=== PATIENT | female | born 1970 | race African-American/Black ===

== ENCOUNTER 2022-10-28 11:32 | Emergency (ER) | payer MEDICAID, OTHER ==
[~2022-10-28] VITALS: Ht 152.4 cm; Wt 86.0 kg
[~2022-10-28 11:32] MED LIST: AMOX1TAB16 MT; FLUO20CA39 PO; GABA-532 PO; LANTUSUD SUBCUT; MIDO5TAB4 PO
[2022-10-28 13:13] LABS: EOSINOPHILS % 3.9 % (0.0-5.0); HEMATOCRIT. 32.8 % (36.0-48.0); HEMOGLOBIN. 10.7 g/dL (12.0-16.0); MEAN CORPUSCULAR HEMOGLOBIN 26.9 pg (28.0-32.0); MEAN CORPUSCULAR VOLUME 82.3 fL (81.0-99.0); MEAN PLATELET VOLUME 9.5 fl (7.4-10.4); MONOCYTES % 7.5 % (2.0-8.0); NEUTROPHILS % 52.6 % (40.0-76.0); PLATELET 329 x1000/uL (130-400); RED BLOOD CELL COUNT 3.99 mill/uL (4.2-5.4); RED CELL DISTRIBUTION WIDTH 15.2 % (11.6-14.6)
[2022-10-28 13:21] LABS: CHLORIDE 101 mEq/L (98-107)
[2022-10-28 14:30] VITALS: BP 127/82
[2022-10-28] MEDS ORDERED: BLOOD SUGAR DIAGNOSTIC STRIP TEST SCH (17:00)
[2022-10-28] MEDS ORDERED: INSULIN LISPRO 100 UNITS/ML SUBCUT SCH (18:20)
== END 2022-10-28 14:32 | disposition home or self-care (01) ==
LOC: ER 11:32
DX: E11.621 Type 2 diabetes mellitus with foot ulcer (principal); L97.529 Non-pressure chronic ulcer of other part of left foot with unspecified severity; I10 Essential (primary) hypertension; Z79.4 Long term (current) use of insulin
CPT/HCPCS: 36415; 73630; 80053; 82962; 85025; 99284; Z7610

== ENCOUNTER 2024-06-05 15:00 | Inpatient (IN) | payer MEDICAID, OTHER ==
[~2024-06-05] VITALS: Ht 160 cm; Wt 74.8 kg
[~2024-06-05 15:00] MED LIST changes: +FLUO-413 PO; -FLUO20CA39 PO; +GABA-1180 PO; -GABA-532 PO
[2024-06-05] MEDS: SODIUM CHLORIDE 0.9% 1,000 ML IV ONE ×2 (15:20→17:28)
[2024-06-05 15:24] LABS: BASOPHILS % 0.8 % (0.0-2.0); EOSINOPHILS % 0.6 % (0.0-5.0); HEMATOCRIT. 33.2 % (36.0-48.0); HEMOGLOBIN. 10.4 g/dL (12.0-16.0); LYMPHOCYTES % 21.4 % (20.0-50.0); MEAN CORPUSCULAR HEMOGLOBIN 25.6 pg (28.0-32.0); MEAN CORPUSCULAR HGB CONC 31.4 g/dL (31.0-37.0); MEAN CORPUSCULAR VOLUME 81.5 fL (81.0-99.0); MEAN PLATELET VOLUME 11.3 fl (7.4-10.4); MONOCYTES % 7.4 % (2.0-8.0); NEUTROPHILS % 69.8 % (40.0-76.0); PLATELET 314 x1000/uL (130-400); RED BLOOD CELL COUNT 4.07 mill/uL (4.2-5.4); RED CELL DISTRIBUTION WIDTH 17.2 % (11.6-14.6); WHITE BLOOD COUNT 10.4 x1000/uL (4.5-11.0)
[2024-06-05] MEDS: ONDANSETRON HCL 4MG/2ML INJ IV STA (15:26)
[2024-06-05 15:30] LABS: CARBON DIOXIDE 15 mEq/L (21-32); CHLORIDE 101 mEq/L (98-107); SODIUM 134 mEq/L (136-145)
[2024-06-05 15:31] LABS: CALCIUM 10.4 mg/dL (8.7-10.4)
[2024-06-05 15:36] LABS: CREATININE 4.3 mg/dL (0.6-1.0)
[2024-06-05 15:37] LABS: TROPONIN I HIGH SENSITIVITY 5 ng/L (3.0-34)
[2024-06-05 15:53] LABS: POTASSIUM 6.2 mEq/L (3.5-5.1)
[2024-06-05 15:54] LABS: ETHANOL BLOOD < 10 mg/dL (<10); GLUCOSE 635 mg/dL (70-105); UREA NITROGEN BLOOD 151 mg/dL (9-23)
[2024-06-05 16:06] LABS: BETA HYDROXYBUTYRATE 1.8 mMol/L (0.0-0.3)
[2024-06-05] MEDS: CALCIUM CHLORIDE 1GM/10ML SYR IV ONE (16:27)
[2024-06-05] MEDS: DEXTROSE 50% WATER 50ML SYRINGE IV ONE (16:27)
[2024-06-05] MEDS: INSULIN REGULAR (HUMULIN R) 1000UNITS/10ML VIAL IV ONE (16:30)
[2024-06-05] MEDS ORDERED: SODIUM PHOSPHATE 15 MMOL in SODIUM CHLORIDE 0.9% 245 ML IV PRN (16:45)
[2024-06-05] MEDS ORDERED: DEXTROSE 50% WATER 50ML SYRINGE IV PRN ×3 (16:45→20:30)
[2024-06-05] MEDS ORDERED: KCL 20MEQ/100ML PREMIX 100 ML IV PRN (16:45)
[2024-06-05] MEDS ORDERED: MAGNESIUM 2 G PREMIX 50 ML IV PRN (16:45)
[2024-06-05] MEDS ORDERED: POTASSIUM CHLORIDE 40 MEQ in SODIUM CHLORIDE 0.9% 230 ML IV PRN (16:45)
[2024-06-05] MEDS ORDERED: BLOOD SUGAR DIAGNOSTIC STRIP TEST PRN (16:45)
[2024-06-05] MEDS: BLOOD SUGAR DIAGNOSTIC STRIP TEST SCH ×2 (16:52→21:00)
[2024-06-05] MEDS: INSULIN REGULAR (DRIP) 100 UNITS in SODIUM CHLORIDE 0.9% 99 ML IV SCH (17:04)
[2024-06-05] MEDS: SODIUM CHLORIDE 0.9% 1,000 ML IV SCH (17:05)
[2024-06-05 17:32] LABS: CHLORIDE 106 mEq/L (98-107); POTASSIUM 5.3 mEq/L (3.5-5.1)
[2024-06-05 17:33] LABS: CARBON DIOXIDE 12 mEq/L (21-32); SODIUM 135 mEq/L (136-145)
[2024-06-05 17:34] LABS: CALCIUM 10.9 mg/dL (8.7-10.4)
[2024-06-05 17:39] LABS: TROPONIN I HIGH SENSITIVITY 4 ng/L (3.0-34)
[2024-06-05 17:41] LABS: PHOSPHORUS 6.5 mg/dL (2.5-4.9)
[2024-06-05 17:52] LABS: GLUCOSE 689 mg/dL (70-105); UREA NITROGEN BLOOD 138 mg/dL (9-23)
[2024-06-05 18:26] VITALS: PULSE 108; RESP 14; O2SAT 100
[2024-06-05] MEDS: ALBUTEROL (0.083%) 2.5MG/3ML NEB HHN ONE (18:26)
[2024-06-05] MEDS: ALBUTEROL (0.083%) 2.5MG/3ML NEB ONE (19:10)
[2024-06-05] MEDS: ALBUTEROL (0.5%) 2.5MG/0.5ML NEB HHN ONE (19:10)
[2024-06-05] MEDS: NOREPINEPHRINE 8MG/250ML PMX 250 ML IV ONE (19:34)
[2024-06-05] MEDS ORDERED: SODIUM CHLORIDE 0.9% (SEPSIS BOLUS) IV ONE (19:45)
[2024-06-05] MEDS ORDERED: SODIUM CHLORIDE 0.9% 3,000 ML IV SCH (20:00)
[2024-06-05] MEDS ORDERED: ACETAMINOPHEN 325MG TABLET PO PRN ×2 (20:30)
[2024-06-05] MEDS ORDERED: KETOROLAC 15MG/ML VIAL IV PRN (20:30)
[2024-06-05] MEDS ORDERED: GUAIFENESIN 200MG/10ML SUGAR FREE UDC PO PRN (20:30)
[2024-06-05] MEDS ORDERED: DOCUSATE SODIUM 100MG CAPSULE PO PRN (20:30)
[2024-06-05] MEDS ORDERED: CLONIDINE 0.1MG TABLET PO PRN (20:30)
[2024-06-05] MEDS ORDERED: IPRATROPIUM/ALBUTEROL 0.5-3(2.5)MG/3ML NEB NEB PRN (20:30)
[2024-06-05] MEDS ORDERED: SODIUM CHLORIDE 0.45% 1,000 ML IV NR (20:30)
[2024-06-05] MEDS ORDERED: MAGNESIUM/ALUMINUM HYDROXIDE/SIMETHICONE 30ML UDC PO PRN (20:30)
[2024-06-05] MEDS ORDERED: ENOXAPARIN 40MG/0.4ML SYR SUBCUT SCH (20:30)
[2024-06-05] MEDS ORDERED: NITROGLYCERIN 0.4MG TABLET SL SL PRN (20:30)
[2024-06-05] MEDS ORDERED: ZOLPIDEM TARTRATE 5MG TABLET PO PRN (21:00)
[2024-06-05 21:45] LABS: CHLORIDE 111 mEq/L (98-107); SODIUM 139 mEq/L (136-145)
[2024-06-05 21:46] LABS: CALCIUM 10.2 mg/dL (8.7-10.4); CARBON DIOXIDE 11 mEq/L (21-32)
[2024-06-05 21:51] LABS: CREATININE 3.6 mg/dL (0.6-1.0); GLUCOSE 391 mg/dL (70-105); IRON 67 ug/dL (50-170)
[2024-06-05 21:52] LABS: TRIGLYCERIDE 239 mg/dL (0-150)
[2024-06-05 21:53] LABS: ALANINE AMINOTRANSFERASE < 7 IU/L (10-49); ALBUMIN 3.9 g/dL (3.2-4.8); ASPARTATE AMINOTRANSFERASE 24 IU/L (<34); BILIRUBIN TOTAL 0.4 mg/dL (0.1-1.0); LACTIC ACID 3.3 mmol/L (0.4-2.0); LDL CHOLESTEROL 79 mg/dL (5-100); PHOSPHORUS 5.8 mg/dL (2.5-4.9)
[2024-06-05 21:54] LABS: CHOLESTEROL 154 mg/dL (<200); HDL CHOLESTEROL 28 mg/dL (>65); PROTEIN TOTAL 8.2 g/dL (6.0-8.3); TOTAL IRON BINDING CAPACITY 420 ug/dl (250-425)
[2024-06-05 21:56] LABS: T4 FREE 1.25 ng/dL (0.89-1.76); THYROID STIMULATING HORMONE 0.73 uIU/mL (0.55-4.78)
[2024-06-05 21:58] LABS: VITAMIN B12 SERUM 694 pg/mL (211-911)
[2024-06-05 21:59] LABS: FOLIC ACID (FOLATE) SERUM > 20.00 ng/mL (>5.38)
[2024-06-05 22:00] LABS: POTASSIUM 4.6 mEq/L (3.5-5.1)
[2024-06-05 22:19] LABS: UREA NITROGEN BLOOD 126 mg/dL (9-23)
[2024-06-05] MEDS: PIPERACILLIN/TAZO 3.375G/50ML 50 ML IV NR (23:44)
[2024-06-05] MEDS: PANTOPRAZOLE SODIUM 40 MG/VIAL IV SCH (23:45)
[2024-06-05] MEDS: ENOXAPARIN 30MG/0.3ML SYR SUBCUT SCH (23:45)
[2024-06-06] VITALS (23 sets, daily range): BP systolic 59–171; BP diastolic 35–102; PULSE 94–128; RESP 13–29; TEMP 36.3624–37.11408; O2SAT 97–100
[2024-06-06 00:10] LABS: CREATINE KINASE MB FRACTION 1.8 ng/mL (0.5-3.6)
[2024-06-06] MEDS: SODIUM CHLORIDE 0.9% 1,000 ML IV SCH (00:19)
[2024-06-06 00:31] LABS: CHLORIDE 112 mEq/L (98-107); POTASSIUM 4.6 mEq/L (3.5-5.1); SODIUM 142 mEq/L (136-145)
[2024-06-06 00:32] LABS: CALCIUM 10.6 mg/dL (8.7-10.4)
[2024-06-06 00:37] LABS: CREATININE 3.5 mg/dL (0.6-1.0); GLUCOSE 354 mg/dL (70-105)
[2024-06-06 00:39] LABS: ALANINE AMINOTRANSFERASE < 7 IU/L (10-49); ALBUMIN 3.9 g/dL (3.2-4.8); ASPARTATE AMINOTRANSFERASE 9 IU/L (<34); BILIRUBIN TOTAL 0.4 mg/dL (0.1-1.0); PROTEIN TOTAL 8.2 g/dL (6.0-8.3)
[2024-06-06] MEDS: DEXT 5%/0.9% NACL 1,000 ML IV SCH (00:45)
[2024-06-06 01:19] LABS: CARBON DIOXIDE < 10 mEq/L (21-32)
[2024-06-06 01:22] LABS: UREA NITROGEN BLOOD 112 mg/dL (9-23)
[2024-06-06 04:14] LABS: BASOPHILS % 0.4 % (0.0-2.0); EOSINOPHILS % 0.7 % (0.0-5.0); HEMOGLOBIN. 10.4 g/dL (12.0-16.0); LYMPHOCYTES % 24.3 % (20.0-50.0); MEAN CORPUSCULAR HEMOGLOBIN 25.6 pg (28.0-32.0); MEAN CORPUSCULAR HGB CONC 30.7 g/dL (31.0-37.0); MEAN CORPUSCULAR VOLUME 83.3 fL (81.0-99.0); NEUTROPHILS % 61.6 % (40.0-76.0); PLATELET 271 x1000/uL (130-400); RED BLOOD CELL COUNT 4.08 mill/uL (4.2-5.4); RED CELL DISTRIBUTION WIDTH 17.1 % (11.6-14.6); WHITE BLOOD COUNT 12.8 x1000/uL (4.5-11.0)
[2024-06-06 04:28] LABS: CHLORIDE 114 mEq/L (98-107); POTASSIUM 4.5 mEq/L (3.5-5.1); SODIUM 145 mEq/L (136-145)
[2024-06-06 04:29] LABS: CALCIUM 10.5 mg/dL (8.7-10.4); CARBON DIOXIDE 14 mEq/L (21-32)
[2024-06-06 04:34] LABS: CREATININE 3.5 mg/dL (0.6-1.0); GLUCOSE 245 mg/dL (70-105)
[2024-06-06 04:36] LABS: ALANINE AMINOTRANSFERASE < 7 IU/L (10-49); ALBUMIN 4.1 g/dL (3.2-4.8); ASPARTATE AMINOTRANSFERASE 9 IU/L (<34); BILIRUBIN TOTAL 0.4 mg/dL (0.1-1.0); CREATINE KINASE MB FRACTION 1.6 ng/mL (0.5-3.6)
[2024-06-06 04:37] LABS: PROTEIN TOTAL 8.5 g/dL (6.0-8.3)
[2024-06-06 05:08] LABS: UREA NITROGEN BLOOD 122 mg/dL (9-23)
[2024-06-06] MEDS: PIPERACILLIN/TAZO 3.375G/50ML 50 ML IV SCH (09:00)
[2024-06-06] MEDS: ASPIRIN 81MG EC TABLET PO SCH (09:00)
[2024-06-06 10:58] LABS: CHLORIDE 118 mEq/L (98-107); POTASSIUM 4.2 mEq/L (3.5-5.1); SODIUM 147 mEq/L (136-145)
[2024-06-06 10:59] LABS: CALCIUM 10.1 mg/dL (8.7-10.4); CARBON DIOXIDE 15 mEq/L (21-32)
[2024-06-06 11:03] LABS: CREATININE 2.8 mg/dL (0.6-1.0)
[2024-06-06 11:04] LABS: GLUCOSE 160 mg/dL (70-105); UREA NITROGEN BLOOD 100 mg/dL (9-23)
[2024-06-06 11:05] LABS: ALANINE AMINOTRANSFERASE < 7 IU/L (10-49); ASPARTATE AMINOTRANSFERASE 10 IU/L (<34)
[2024-06-06 11:06] LABS: BETA HYDROXYBUTYRATE 0.1 mMol/L (0.0-0.3); BILIRUBIN TOTAL 0.3 mg/dL (0.1-1.0); PROTEIN TOTAL 8.4 g/dL (6.0-8.3)
[2024-06-06 13:41] LABS: CLARITY URINE CLEAR (CLEAR); COLOR URINE YELLOW (YELLOW); GLUCOSE URINE 2+ (NEGATIVE); KETONES URINE NEGATIVE (NEGATIVE); LEUKOCYTE ESTERASE URINE 2+ (NEGATIVE); NITRITE URINE NEGATIVE (NEGATIVE); OCCULT BLOOD URINE TRACE (NEGATIVE); PROTEIN URINE 1+ (NEGATIVE); SPECIFIC GRAVITY URINE 1.012 (1.005-1.030); UROBILINOGEN URINE 0.2 E.U./dL (0.2-1.0)
[2024-06-06 13:57] LABS: *AMPHETAMINES SCREEN URINE NEGATIVE (NEGATIVE); *BARBITURATES SCREEN URINE NEGATIVE (NEGATIVE); *BENZODIAZEPINES SCREEN URINE NEGATIVE (NEGATIVE); *COCAINE SCREEN URINE NEGATIVE (NEGATIVE); CANNABINOID URINE SCREEN NEGATIVE (NEGATIVE); ECSTASY MDMA SCREEN URINE NEGATIVE (NEGATIVE); METHADONE URINE SCREEN NEGATIVE (NEGATIVE); OPIATES URINE SCREEN NEGATIVE (NEGATIVE); PHENCYCLIDINE URINE SCREEN NEGATIVE (NEGATIVE)
[2024-06-06 13:58] LABS: CREATININE URINE RANDOM 21.3 mg/dL
[2024-06-06 14:09] LABS: BACTERIA URINE 1+; RBC URINE 0-2 /hpf (0-2); SQUAMOUS EPITHELIAL CELL URINE RARE /lpf (RARE/1+); WBC URINE 50-100 /hpf (0-2); YEAST URINE NONE SEEN
[2024-06-06 14:48] LABS: CHLORIDE 117 mEq/L (98-107); POTASSIUM 4.8 mEq/L (3.5-5.1); SODIUM 146 mEq/L (136-145)
[2024-06-06 14:49] LABS: CALCIUM 9.7 mg/dL (8.7-10.4); CARBON DIOXIDE 14 mEq/L (21-32)
[2024-06-06 14:54] LABS: CREATININE 2.8 mg/dL (0.6-1.0); GLUCOSE 338 mg/dL (70-105)
[2024-06-06 14:56] LABS: ALANINE AMINOTRANSFERASE < 7 IU/L (10-49); ASPARTATE AMINOTRANSFERASE 14 IU/L (<34); BILIRUBIN TOTAL 0.3 mg/dL (0.1-1.0); PROTEIN TOTAL 8.3 g/dL (6.0-8.3)
[2024-06-06 15:01] LABS: UREA NITROGEN BLOOD 105 mg/dL (9-23)
[2024-06-06] MEDS ORDERED: DEXTROSE 50% WATER 50ML SYRINGE IV PRN ×2 (18:45)
[2024-06-06] MEDS: BLOOD SUGAR DIAGNOSTIC STRIP TEST SCH (18:45)
[2024-06-06] MEDS: ONDANSETRON HCL 4MG/2ML INJ IV PRN (18:53)
[2024-06-06] MEDS: SODIUM CHL 0.45% + KCL 20MEQ/L 1,000 ML IV SCH (19:09)
[2024-06-06] MEDS: MAGNESIUM 1 G PREMIX 100 ML IV NR (19:09)
[2024-06-06] MEDS ORDERED: INSULIN REGULAR 100U/100ML PMX 100 ML IV SCH ×2 (19:30)
[2024-06-06] MEDS ORDERED: PHENYLEPHRINE 100 MG in DEXT 5% WATER 240 ML IV PRN (19:30)
[2024-06-06] MEDS: SODIUM CHLORIDE 0.45% 1,000 ML IV NR (19:55)
[2024-06-06 22:24] LABS: CARBON DIOXIDE 14 mEq/L (21-32); CHLORIDE 120 mEq/L (98-107); POTASSIUM 4.2 mEq/L (3.5-5.1); SODIUM 149 mEq/L (136-145)
[2024-06-06 22:26] LABS: CALCIUM 9.8 mg/dL (8.7-10.4)
[2024-06-06 22:30] LABS: CREATININE 2.6 mg/dL (0.6-1.0); GLUCOSE 270 mg/dL (70-105)
[2024-06-06 22:31] LABS: ALANINE AMINOTRANSFERASE < 7 IU/L (10-49); ASPARTATE AMINOTRANSFERASE 8 IU/L (<34); UREA NITROGEN BLOOD 89 mg/dL (9-23)
[2024-06-06 22:33] LABS: BILIRUBIN TOTAL 0.3 mg/dL (0.1-1.0); PROTEIN TOTAL 8.6 g/dL (6.0-8.3)
[2024-06-07] VITALS (98 sets, daily range): BP systolic 66–155; BP diastolic 32–115; PULSE 89–118; RESP 11–26; TEMP 36.72516–37.28076; O2SAT 80–100
[2024-06-07] MEDS: DEXT 5%/0.45% NACL KCL 20MEQ/L 1,000 ML IV SCH (00:10)
[2024-06-07] MEDS: INSULIN REGULAR 100U/100ML PMX 100 ML IV SCH (00:15)
[2024-06-07] MEDS: PHENYLEPHRINE 100 MG in DEXT 5% WATER 250 ML IV PRN (00:59)
[2024-06-07 06:36] LABS: CHLORIDE 118 mEq/L (98-107); POTASSIUM 4.5 mEq/L (3.5-5.1); SODIUM 147 mEq/L (136-145)
[2024-06-07 06:38] LABS: CARBON DIOXIDE 17 mEq/L (21-32)
[2024-06-07 06:43] LABS: GLUCOSE 173 mg/dL (70-105)
[2024-06-07 06:44] LABS: UREA NITROGEN BLOOD 75 mg/dL (9-23)
[2024-06-07 06:45] LABS: ALANINE AMINOTRANSFERASE < 7 IU/L (10-49); ALBUMIN 3.7 g/dL (3.2-4.8)
[2024-06-07 06:46] LABS: BILIRUBIN TOTAL 0.4 mg/dL (0.1-1.0); PHOSPHORUS 1.9 mg/dL (2.5-4.9); PROTEIN TOTAL 7.9 g/dL (6.0-8.3)
[2024-06-07 06:50] LABS: BASOPHILS % 0.4 % (0.0-2.0); EOSINOPHILS % 0.9 % (0.0-5.0); HEMATOCRIT. 30.4 % (36.0-48.0); HEMOGLOBIN. 9.3 g/dL (12.0-16.0); LYMPHOCYTES % 18.8 % (20.0-50.0); MEAN CORPUSCULAR HEMOGLOBIN 25.1 pg (28.0-32.0); MEAN CORPUSCULAR HGB CONC 30.7 g/dL (31.0-37.0); MEAN CORPUSCULAR VOLUME 81.9 fL (81.0-99.0); MEAN PLATELET VOLUME 10.9 fl (7.4-10.4); NEUTROPHILS % 65.9 % (40.0-76.0); PLATELET 257 x1000/uL (130-400); RED BLOOD CELL COUNT 3.71 mill/uL (4.2-5.4); RED CELL DISTRIBUTION WIDTH 17.7 % (11.6-14.6); WHITE BLOOD COUNT 15.7 x1000/uL (4.5-11.0)
[2024-06-07 06:56] LABS: ASPARTATE AMINOTRANSFERASE < 8 IU/L (<34)
[2024-06-07] MEDS: PIPERACILLIN/TAZO 3.375G/100ML 100 ML IV SCH (09:37)
[2024-06-07] MEDS ORDERED: DEXTROSE 50% WATER 50ML SYRINGE IV PRN ×2 (11:15)
[2024-06-07 12:11] LABS: POTASSIUM 4.5 mEq/L (3.5-5.1)
[2024-06-07 12:12] LABS: CALCIUM 8.6 mg/dL (8.7-10.4)
[2024-06-07] MEDS ORDERED: BLOOD SUGAR DIAGNOSTIC STRIP TEST SCH (12:50)
[2024-06-07] MEDS: BLOOD SUGAR DIAGNOSTIC STRIP TEST SCH (12:50)
[2024-06-07] MEDS: INSULIN GLARGINE 100 UNITS/ML SUBCUT SCH (13:03)
[2024-06-07] MEDS: INSULIN LISPRO 100 UNITS/ML SUBCUT SCH ×2 (13:03→14:36)
[2024-06-08] VITALS (91 sets, daily range): BP systolic 72–173; BP diastolic 40–105; PULSE 81–120; RESP 9–25; TEMP 36.55848–37.16964; O2SAT 96–100
[2024-06-08 06:00] LABS: BASOPHILS % 0.9 % (0.0-2.0); EOSINOPHILS % 2.6 % (0.0-5.0); HEMATOCRIT. 29.6 % (36.0-48.0); HEMOGLOBIN. 9.2 g/dL (12.0-16.0); LYMPHOCYTES % 26.5 % (20.0-50.0); MEAN CORPUSCULAR HEMOGLOBIN 25.6 pg (28.0-32.0); MEAN CORPUSCULAR HGB CONC 31.1 g/dL (31.0-37.0); MEAN CORPUSCULAR VOLUME 82.3 fL (81.0-99.0); MEAN PLATELET VOLUME 10.8 fl (7.4-10.4); MONOCYTES % 11.4 % (2.0-8.0); NEUTROPHILS % 58.6 % (40.0-76.0); PLATELET 225 x1000/uL (130-400); RED CELL DISTRIBUTION WIDTH 17.3 % (11.6-14.6); WHITE BLOOD COUNT 14.2 x1000/uL (4.5-11.0)
[2024-06-08 06:19] LABS: POTASSIUM 4.8 mEq/L (3.5-5.1)
[2024-06-08 06:25] LABS: CREATININE 1.8 mg/dL (0.6-1.0)
[2024-06-08] MEDS ORDERED: INSULIN GLARGINE 100 UNITS/ML SUBCUT SCH (10:00)
[2024-06-08] MEDS: MIDODRINE HCL 5MG TABLET PO SCH (11:57)
[2024-06-09] VITALS (43 sets, daily range): BP systolic 84–172; BP diastolic 44–141; PULSE 85–114; RESP 12–27; TEMP 36.6696–36.9474; O2SAT 96–100
[2024-06-09 06:16] LABS: CALCIUM 8.7 mg/dL (8.7-10.4); POTASSIUM 4.6 mEq/L (3.5-5.1)
[2024-06-09 06:18] LABS: BASOPHILS % 0.7 % (0.0-2.0); EOSINOPHILS % 2.3 % (0.0-5.0); HEMATOCRIT. 28.8 % (36.0-48.0); LYMPHOCYTES % 27.4 % (20.0-50.0); MEAN CORPUSCULAR HEMOGLOBIN 25.6 pg (28.0-32.0); MEAN CORPUSCULAR HGB CONC 31.1 g/dL (31.0-37.0); MEAN CORPUSCULAR VOLUME 82.4 fL (81.0-99.0); NEUTROPHILS % 58.6 % (40.0-76.0); PLATELET 212 x1000/uL (130-400); RED CELL DISTRIBUTION WIDTH 17.7 % (11.6-14.6); WHITE BLOOD COUNT 13.3 x1000/uL (4.5-11.0)
[2024-06-09 06:22] LABS: CREATININE 2.1 mg/dL (0.6-1.0)
[2024-06-09] MEDS ORDERED: LIDOCAINE HCL 1% 10 MG/ML 10ML VIAL ONE (07:42)
[2024-06-09] MEDS: LACTATED RINGERS 1,000 ML IV SCH (10:50)
[2024-06-09] MEDS: MIDODRINE HCL 5MG TABLET PO NR (10:50)
[2024-06-09] MEDS: MIDODRINE HCL 5MG TABLET PO SCH (13:03)
[2024-06-09] MEDS: CEFTRIAXONE 1GM/50ML 50ML IV SCH (21:49)
[2024-06-10] VITALS (19 sets, daily range): BP systolic 86–146; BP diastolic 60–97; PULSE 92–113; RESP 13–20; TEMP 35.89176–37.00296; O2SAT 98–100
[2024-06-11] VITALS: BP 133/78; PULSE 94; RESP 20; TEMP 36.00288; O2SAT 99
[2024-06-11 04:00] VITALS: BP 130/83; PULSE 94; RESP 18; TEMP 36.114; O2SAT 98
[2024-06-11 07:07] LABS: A/G RATIO 0.5 (0.7-1.7); ALBUMIN 2.8 g/dL (2.9-4.4); ALPHA-1-GLOBULIN 0.2 g/dL (0.0-0.4); ALPHA-2-GLOBULIN 1.3 g/dL (0.4-1.0); BETA GLOBULIN 1.3 g/dL (0.7-1.3); GAMMA GLOBULINS 2.3 g/dL (0.4-1.8); GLOBULIN TOTAL 5.1 g/dL (2.2-3.9); M-SPIKE Not Observed g/dL (Not Observed); TOTAL PROTEIN SERUM 7.9 g/dL (6.0-8.5)
[2024-06-11 08:00] VITALS: BP 122/77; PULSE 100; RESP 18; TEMP 36.61404; O2SAT 98
[2024-06-11 12:00] VITALS: BP 142/95; PULSE 104; RESP 19; TEMP 36.61404; O2SAT 95
[2024-06-11 15:59] VITALS: BP 130/81; PULSE 98; RESP 18; TEMP 36.61404; O2SAT 98
[2024-06-11 20:00] VITALS: BP 110/71; PULSE 99; RESP 17; TEMP 36.50292; O2SAT 97
[2024-06-12] VITALS: BP 85/53; PULSE 94; RESP 18; TEMP 36.114; O2SAT 98
[2024-06-12 04:00] VITALS: BP 105/72; PULSE 97; RESP 18; TEMP 36.16956; O2SAT 97
[2024-06-12 08:00] VITALS: BP 126/79; PULSE 107; RESP 18; TEMP 36.05844; O2SAT 97
[2024-06-12 12:00] VITALS: BP 133/84; PULSE 107; RESP 19; TEMP 36.28068; O2SAT 98
[2024-06-12] MEDS: MIDODRINE HCL 5MG TABLET PO SCH (12:20)
[2024-06-12 16:00] VITALS: BP 149/92; PULSE 97; RESP 17; TEMP 36.16956; O2SAT 98
[2024-06-12 20:00] VITALS: BP 137/80; PULSE 101; RESP 19; TEMP 36.61404; O2SAT 99
[2024-06-13] VITALS: BP 123/81; PULSE 99; RESP 19; TEMP 36.28068; O2SAT 98
[2024-06-13 04:00] VITALS: BP 92/60; PULSE 97; RESP 19; TEMP 36.33624; O2SAT 99
[2024-06-13 08:00] VITALS: BP 101/67; PULSE 101; RESP 18; TEMP 36.78072; O2SAT 98
[2024-06-13 10:55] LABS: POTASSIUM 5.1 mEq/L (3.5-5.1)
[2024-06-13 10:56] LABS: CALCIUM 9.5 mg/dL (8.7-10.4)
[2024-06-13 11:02] LABS: BASOPHILS % 0.4 % (0.0-2.0); EOSINOPHILS % 2.7 % (0.0-5.0); HEMATOCRIT. 30.1 % (36.0-48.0); HEMOGLOBIN. 9.2 g/dL (12.0-16.0); LYMPHOCYTES % 37.6 % (20.0-50.0); MEAN CORPUSCULAR HEMOGLOBIN 25.6 pg (28.0-32.0); MEAN CORPUSCULAR HGB CONC 30.6 g/dL (31.0-37.0); MEAN CORPUSCULAR VOLUME 83.5 fL (81.0-99.0); MEAN PLATELET VOLUME 10.5 fl (7.4-10.4); MONOCYTES % 13.6 % (2.0-8.0); NEUTROPHILS % 45.7 % (40.0-76.0); PLATELET 205 x1000/uL (130-400); RED BLOOD CELL COUNT 3.61 mill/uL (4.2-5.4); RED CELL DISTRIBUTION WIDTH 17.6 % (11.6-14.6); WHITE BLOOD COUNT 10.1 x1000/uL (4.5-11.0)
[2024-06-13 11:21] LABS: CREATININE 1.4 mg/dL (0.6-1.0)
[2024-06-13 12:00] VITALS: BP 131/83; PULSE 104; RESP 18; TEMP 36.44736; O2SAT 98
[2024-06-13 16:00] VITALS: BP 125/84; PULSE 111; RESP 18; TEMP 36.16956; O2SAT 98
[2024-06-13 20:00] VITALS: BP 124/84; PULSE 111; RESP 20; TEMP 36.50292; O2SAT 97
[2024-06-14] VITALS: BP 100/60; PULSE 100; RESP 18; TEMP 36.89184; O2SAT 98
[2024-06-14 04:00] VITALS: BP 90/62; PULSE 103; RESP 18; TEMP 36.83628; O2SAT 97
[2024-06-14 08:00] VITALS: BP 100/60; PULSE 90; RESP 18; TEMP 36.05844; O2SAT 98
[2024-06-14 12:00] VITALS: BP 109/70; PULSE 111; RESP 18; TEMP 36.114; O2SAT 99
[2024-06-14 12:20] LABS: BASOPHILS % 0.6 % (0.0-2.0); EOSINOPHILS % 2.3 % (0.0-5.0); HEMATOCRIT. 27.3 % (36.0-48.0); HEMOGLOBIN. 8.6 g/dL (12.0-16.0); LYMPHOCYTES % 33.1 % (20.0-50.0); MEAN CORPUSCULAR HGB CONC 31.6 g/dL (31.0-37.0); MEAN CORPUSCULAR VOLUME 82.2 fL (81.0-99.0); MEAN PLATELET VOLUME 10.1 fl (7.4-10.4); PLATELET 214 x1000/uL (130-400); RED BLOOD CELL COUNT 3.32 mill/uL (4.2-5.4); RED CELL DISTRIBUTION WIDTH 16.9 % (11.6-14.6)
[2024-06-14 12:32] LABS: POTASSIUM 4.9 mEq/L (3.5-5.1)
[2024-06-14 12:34] LABS: CALCIUM 9.1 mg/dL (8.7-10.4)
[2024-06-14 12:38] LABS: CREATININE 1.4 mg/dL (0.6-1.0)
[2024-06-14 16:00] VITALS: BP 91/62; PULSE 112; RESP 18; TEMP 36.16956; O2SAT 99
[2024-06-14 20:00] VITALS: BP 93/63; PULSE 112; RESP 18; TEMP 36.6696; O2SAT 98
[2024-06-15] VITALS: BP 109/57; PULSE 97; RESP 16; TEMP 37.05852; O2SAT 100
[2024-06-15 04:00] VITALS: BP 103/56; PULSE 98; RESP 20; TEMP 36.61404; O2SAT 99
[2024-06-15 07:03] LABS: BASOPHILS % 0.5 % (0.0-2.0); HEMATOCRIT. 25.8 % (36.0-48.0); HEMOGLOBIN. 8.2 g/dL (12.0-16.0); LYMPHOCYTES % 37.7 % (20.0-50.0); MEAN CORPUSCULAR HEMOGLOBIN 26.3 pg (28.0-32.0); MEAN CORPUSCULAR HGB CONC 31.9 g/dL (31.0-37.0); MEAN CORPUSCULAR VOLUME 82.3 fL (81.0-99.0); MEAN PLATELET VOLUME 10.1 fl (7.4-10.4); MONOCYTES % 11.6 % (2.0-8.0); NEUTROPHILS % 47.2 % (40.0-76.0); PLATELET 205 x1000/uL (130-400); RED BLOOD CELL COUNT 3.13 mill/uL (4.2-5.4); RED CELL DISTRIBUTION WIDTH 16.9 % (11.6-14.6); WHITE BLOOD COUNT 8.7 x1000/uL (4.5-11.0)
[2024-06-15 07:10] LABS: POTASSIUM 4.5 mEq/L (3.5-5.1)
[2024-06-15 07:12] LABS: CALCIUM 8.9 mg/dL (8.7-10.4)
[2024-06-15 07:16] LABS: CREATININE 1.7 mg/dL (0.6-1.0)
[2024-06-15 08:00] VITALS: BP 95/51; PULSE 107; RESP 18; TEMP 36.6696; O2SAT 100
[2024-06-15 20:00] VITALS: BP 129/120; PULSE 103; RESP 19; TEMP 36.44736; O2SAT 100
[2024-06-16] VITALS: BP 107/71; PULSE 99; RESP 19; TEMP 36.89184; O2SAT 99
[2024-06-16 04:00] VITALS: BP 98/63; PULSE 94; RESP 19; TEMP 36.78072; O2SAT 100
[2024-06-16 08:00] VITALS: BP 108/66; PULSE 95; RESP 17; TEMP 35.78064; O2SAT 96
[2024-06-16] MEDS: ENOXAPARIN 40MG/0.4ML SYR SUBCUT SCH (09:36)
[2024-06-16] MEDS: FAMOTIDINE 20MG/2ML VIAL IV SCH (09:37)
[2024-06-16 16:00] VITALS: BP 126/75; PULSE 103; RESP 18; TEMP 36.3918; O2SAT 95
[2024-06-16 20:00] VITALS: BP 103/71; PULSE 107; RESP 16; TEMP 36.114; O2SAT 100
[2024-06-17] VITALS: BP 88/49; PULSE 99; RESP 16; TEMP 36.22512; O2SAT 98
[2024-06-17 04:00] VITALS: BP 93/57; PULSE 102; RESP 18; TEMP 36.22512; O2SAT 96
[2024-06-17 08:00] VITALS: BP 126/71; PULSE 111; RESP 20; TEMP 36.114; O2SAT 98
[2024-06-17 09:34] LABS: POTASSIUM 4.7 mEq/L (3.5-5.1)
[2024-06-17 09:36] LABS: CALCIUM 9.2 mg/dL (8.7-10.4)
[2024-06-17 09:39] LABS: CREATININE 1.4 mg/dL (0.6-1.0)
[2024-06-17 12:00] VITALS: BP 102/68; PULSE 106; RESP 20; TEMP 35.61396; O2SAT 100
[2024-06-17 14:13] LABS: BASOPHILS % 0.5 % (0.0-2.0); HEMATOCRIT. 26.7 % (36.0-48.0); HEMOGLOBIN. 8.3 g/dL (12.0-16.0); MEAN CORPUSCULAR HEMOGLOBIN 26.2 pg (28.0-32.0); MEAN CORPUSCULAR VOLUME 84.4 fL (81.0-99.0); MEAN PLATELET VOLUME 10.4 fl (7.4-10.4); NEUTROPHILS % 55.5 % (40.0-76.0); PLATELET 224 x1000/uL (130-400); RED BLOOD CELL COUNT 3.16 mill/uL (4.2-5.4); RED CELL DISTRIBUTION WIDTH 17.3 % (11.6-14.6); WHITE BLOOD COUNT 9.9 x1000/uL (4.5-11.0)
[2024-06-17 16:00] VITALS: BP 94/51; PULSE 110; RESP 19; TEMP 36.28068; O2SAT 99
[2024-06-17 20:00] VITALS: BP 119/68; PULSE 109; RESP 18; TEMP 36.28068
[2024-06-18 08:00] VITALS: BP 111/76; PULSE 101; RESP 20; TEMP 35.89176; O2SAT 100
== END 2024-06-18 11:15 | disposition left against medical advice (07) | DRG 720 ==
LOC: ER 15:00 → EDBEDREQTM 18:37 → EDBEDREQSVC 18:37 → EDBEDREQ 18:37 → CVICU 06-06 17:32 → 4WST 06-10 10:44
PROVIDERS: ADMIT Internal Medicine; ATTEND Internal Medicine
PROC: 06HY33Z Insertion of Infusion Device into Lower Vein, Percutaneous Approach (ICD-10-PCS; principal; 2024-06-06)
PROC: B54BZZA Ultrasonography of Right Lower Extremity Veins, Guidance (ICD-10-PCS; 2024-06-06)
PROC: 02HV33Z Insertion of Infusion Device into Superior Vena Cava, Percutaneous Approach (ICD-10-PCS; 2024-06-09)
PROC: B548ZZA Ultrasonography of Superior Vena Cava, Guidance (ICD-10-PCS; 2024-06-09)
DX: A41.9 Sepsis, unspecified organism (principal); N17.0 Acute kidney failure with tubular necrosis; E11.10 Type 2 diabetes mellitus with ketoacidosis without coma; G92.8 Other toxic encephalopathy; E83.39 Other disorders of phosphorus metabolism; E87.1 Hypo-osmolality and hyponatremia; M62.82 Rhabdomyolysis; Z53.21 Procedure and treatment not carried out due to patient leaving prior to being seen by health care provider; Z20.822 Contact with and (suspected) exposure to COVID-19; E11.22 Type 2 diabetes mellitus with diabetic chronic kidney disease; D64.9 Anemia, unspecified; N39.0 Urinary tract infection, site not specified; E83.52 Hypercalcemia; E87.5 Hyperkalemia; B96.89 Other specified bacterial agents as the cause of diseases classified elsewhere; E11.42 Type 2 diabetes mellitus with diabetic polyneuropathy; N18.9 Chronic kidney disease, unspecified; I12.9 Hypertensive chronic kidney disease with stage 1 through stage 4 chronic kidney disease, or unspecified chronic kidney disease; E66.9 Obesity, unspecified; F32.A Depression, unspecified; I95.1 Orthostatic hypotension; Z91.148 Patient's other noncompliance with medication regimen for other reason; Z83.3 Family history of diabetes mellitus; Z82.49 Family history of ischemic heart disease and other diseases of the circulatory system
CPT/HCPCS: 36415; 36573; 71045; 76770; 80048; 80053; 80061; 80305; 80320; 81003; 82010; 82550; 82553; 82570; 82607; 82746; 82803; 82962; 83036; 83540; 83550; 83605; 83735; 83930; 83970; 84100; 84145; 84155; 84165; 84300; 84439; 84443; 84484; 85025; 87186; 87426; 87804; 92523; 93005; 93306; 93970; 94640; 97162; 97166; 99291; C1725; J0696; J1650; J1815; J2405; J2470; J2543; J3475; J3480; J3490; J7030; J7042; J7050; J7060; G0480

== ENCOUNTER 2025-01-16 08:41 | Inpatient (IN) | payer MEDICAID ==
[~2025-01-16] VITALS: Ht 157.5 cm; Wt 86.2 kg
[2025-01-16] VITALS (46 sets, daily range): BP systolic 63–170; BP diastolic 40–134; PULSE 87–121; RESP 13–30; TEMP 36.1–36.6; O2SAT 89–100
[2025-01-16 09:35] LABS: BASOPHILS % 0.3 % (0.0-2.0); EOSINOPHILS % 0.0 % (0.0-5.0); HEMATOCRIT. 39.2 % (36.0-48.0); HEMOGLOBIN. 10.5 g/dL (12.0-16.0); LYMPHOCYTES % 9.7 % (20.0-50.0); MEAN PLATELET VOLUME 11.1 fl (7.4-10.4); MONOCYTES % 10.5 % (2.0-8.0); NEUTROPHILS % 79.5 % (40.0-76.0); PLATELET 466 x1000/uL (130-400); RED BLOOD CELL COUNT 4.16 mill/uL (4.2-5.4); RED CELL DISTRIBUTION WIDTH 18.5 % (11.6-14.6)
[2025-01-16] MEDS: SODIUM CHLORIDE 0.9% (SEPSIS BOLUS) IV ONE (09:35)
[2025-01-16] MEDS: PIPERACILLIN/TAZO 3.375G/50ML 50 ML IV ONE (09:36)
[2025-01-16 09:56] LABS: TROPONIN I HIGH SENSITIVITY < 4 ng/L (3.0-34)
[2025-01-16 10:09] LABS: UREA NITROGEN BLOOD 86 mg/dL (9-23)
[2025-01-16 10:11] LABS: BILIRUBIN DIRECT < 0.1 mg/dL (<=3.0); BILIRUBIN TOTAL 0.2 mg/dL (0.1-1.0); PROTEIN TOTAL 9.6 g/dL (6.0-8.3)
[2025-01-16] MEDS ORDERED: MAGNESIUM 2 G PREMIX 50 ML IV PRN (10:15)
[2025-01-16] MEDS ORDERED: BLOOD SUGAR DIAGNOSTIC STRIP TEST PRN (10:15)
[2025-01-16] MEDS: SODIUM CHLORIDE 0.9% 1,000 ML IV SCH (10:15)
[2025-01-16] MEDS: DEXT 5%/0.9% NACL 1,000 ML IV SCH (10:15)
[2025-01-16] MEDS ORDERED: POTASSIUM CHLORIDE 40 MEQ in SODIUM CHLORIDE 0.9% 230 ML IV PRN (10:15)
[2025-01-16] MEDS ORDERED: DEXTROSE 50% WATER 50ML SYRINGE IV PRN (10:15)
[2025-01-16] MEDS ORDERED: SODIUM PHOSPHATE 15 MMOL in SODIUM CHLORIDE 0.9% 245 ML IV PRN (10:15)
[2025-01-16 10:27] LABS: BG BASE EXCESS -15.7 mmol/L (-2.0-3.0); BG CARBOXYHEMOGLOBIN 0.3 % (0.5-1.5); BG DEOXYHEMOGLOBIN 2.8 % (0.0-5.0); BG FRACTION INSPIRED OXYGEN 21; BG HCO3 ACT 10.0 mmol/L (21.0-28.0); BG METHEMOGLOBIN 0.2 % (0.5-1.5); BG OXYGEN SATURATION 97.2 % (94.0-98.0); BG OXYHEMOGLOBIN 96.7 % (94.0-98.0); BG PCO2 23.9 mmHg (32.0-45.0); BG PH 7.239 (7.350-7.450); BG PO2 103.5 mmHg (83.0-108.0); BG SAMPLE SITE RIGHT RADIAL; BG TOTAL HEMOGLOBIN 11.2 g/dL (12.0-16.0); BG VENT MODE ROOM AIR
[2025-01-16] MEDS ORDERED: INSULIN REGULAR 100U/100ML PMX 100 ML IV SCH (10:30)
[2025-01-16] MEDS: VANCOMYCIN 1G PREMIX 200 ML IV ONE (10:38)
[2025-01-16 10:59] LABS: PHOSPHORUS 5.2 mg/dL (2.5-4.9)
[2025-01-16] MEDS: BLOOD SUGAR DIAGNOSTIC STRIP TEST SCH (11:15)
[2025-01-16 11:20] LABS: ASPARTATE AMINOTRANSFERASE < 8 IU/L (<34); CREATININE 3.9 mg/dL (0.6-1.0)
[2025-01-16] MEDS: INSULIN REGULAR 100U/100ML PMX 100 ML IV SCH (11:42)
[2025-01-16] MEDS ORDERED: ONDANSETRON HCL 4MG/2ML INJ IV PRN (12:15)
[2025-01-16] MEDS ORDERED: IPRATROPIUM/ALBUTEROL 0.5-3(2.5)MG/3ML NEB HHN PRN (12:15)
[2025-01-16] MEDS ORDERED: CLONIDINE 0.1MG TABLET PO PRN (12:15)
[2025-01-16 15:14] LABS: CREATININE 3.5 mg/dL (0.6-1.0); UREA NITROGEN BLOOD 78 mg/dL (9-23)
[2025-01-16 15:17] LABS: PHOSPHORUS 3.1 mg/dL (2.5-4.9)
[2025-01-16] MEDS: KCL 20MEQ/100ML PREMIX 100 ML IV PRN (15:24)
[2025-01-16] MEDS: NOREPINEPHRINE 8MG/250ML PMX 250 ML IV PRN (17:19)
[2025-01-16 17:48] LABS: BG BASE EXCESS -9.8 mmol/L (-2.0-3.0); BG CARBOXYHEMOGLOBIN 0.4 % (0.5-1.5); BG DEOXYHEMOGLOBIN 6.7 % (0.0-5.0); BG FRACTION INSPIRED OXYGEN 21; BG HCO3 ACT 16.6 mmol/L (21.0-28.0); BG METHEMOGLOBIN 0.1 % (0.5-1.5); BG OXYGEN SATURATION 93.3 % (94.0-98.0); BG OXYHEMOGLOBIN 92.8 % (94.0-98.0); BG PCO2 38.1 mmHg (32.0-45.0); BG PH 7.257 (7.350-7.450); BG PO2 73.1 mmHg (83.0-108.0); BG SAMPLE SITE RIGHT RADIAL; BG TOTAL HEMOGLOBIN 10.4 g/dL (12.0-16.0); BG VENT MODE ROOM AIR
[2025-01-16 19:02] LABS: CREATININE 3.2 mg/dL (0.6-1.0); UREA NITROGEN BLOOD 74 mg/dL (9-23)
[2025-01-16 19:04] LABS: PHOSPHORUS 2.0 mg/dL (2.5-4.9)
[2025-01-16 19:42] LABS: CLARITY URINE CLOUDY (CLEAR); GLUCOSE URINE 3+ (NEGATIVE); KETONES URINE 1+ (NEGATIVE); LEUKOCYTE ESTERASE URINE 2+ (NEGATIVE); NITRITE URINE NEGATIVE (NEGATIVE); OCCULT BLOOD URINE 2+ (NEGATIVE); PH URINE 5.5 (4.5-8.0); PROTEIN URINE 1+ (NEGATIVE); SPECIFIC GRAVITY URINE 1.025 (1.005-1.030); UROBILINOGEN URINE 0.2 E.U./dL (0.2-1.0)
[2025-01-16 19:57] LABS: *AMPHETAMINES SCREEN URINE NEGATIVE (NEGATIVE); *BARBITURATES SCREEN URINE NEGATIVE (NEGATIVE); *BENZODIAZEPINES SCREEN URINE NEGATIVE (NEGATIVE); *COCAINE SCREEN URINE NEGATIVE (NEGATIVE); CANNABINOID URINE SCREEN NEGATIVE (NEGATIVE); ECSTASY MDMA SCREEN URINE NEGATIVE (NEGATIVE); METHADONE URINE SCREEN NEGATIVE (NEGATIVE); OPIATES URINE SCREEN NEGATIVE (NEGATIVE); PHENCYCLIDINE URINE SCREEN NEGATIVE (NEGATIVE)
[2025-01-16 20:07] LABS: COLOR URINE STRAW (YELLOW)
[2025-01-16 20:08] LABS: RBC URINE 0-2 /hpf (0-2); WBC URINE TNTC /hpf (0-2)
[2025-01-16 20:09] LABS: BACTERIA URINE 1+; SQUAMOUS EPITHELIAL CELL URINE RARE /lpf (RARE/1+)
[2025-01-16] MEDS: PIPERACILLIN/TAZO 3.375G/50ML 50 ML IV SCH (21:35)
[2025-01-16 21:49] LABS: CREATININE 3.0 mg/dL (0.6-1.0); UREA NITROGEN BLOOD 67 mg/dL (9-23)
[2025-01-16 21:51] LABS: PHOSPHORUS 1.9 mg/dL (2.5-4.9)
[2025-01-17] VITALS (88 sets, daily range): BP systolic 52–153; BP diastolic 36–109; PULSE 101–142; RESP 19–46; TEMP 36.6–37.5; O2SAT 76–100
[2025-01-17] MEDS: DEXTROSE 5% WATER 1,000 ML IV SCH (00:37)
[2025-01-17 00:58] LABS: CREATININE 2.9 mg/dL (0.6-1.0); UREA NITROGEN BLOOD 72 mg/dL (9-23)
[2025-01-17 01:00] LABS: PHOSPHORUS 1.8 mg/dL (2.5-4.9)
[2025-01-17 05:27] LABS: HEMATOCRIT. 36.2 % (36.0-48.0); HEMOGLOBIN. 10.4 g/dL (12.0-16.0); MEAN PLATELET VOLUME 10.8 fl (7.4-10.4); PLATELET 406 x1000/uL (130-400); RED BLOOD CELL COUNT 4.12 mill/uL (4.2-5.4); RED CELL DISTRIBUTION WIDTH 17.7 % (11.6-14.6)
[2025-01-17 05:45] LABS: CREATININE 2.7 mg/dL (0.6-1.0); UREA NITROGEN BLOOD 77 mg/dL (9-23)
[2025-01-17 05:47] LABS: PHOSPHORUS 1.9 mg/dL (2.5-4.9)
[2025-01-17] MEDS: FAMOTIDINE 20MG/2ML VIAL IV SCH (09:00)
[2025-01-17] MEDS: FLUOXETINE HCL 20MG CAPSULE PO SCH (09:00)
[2025-01-17 09:14] LABS: CREATINE KINASE MB FRACTION 2.9 ng/mL (0.5-3.6); CREATININE 2.3 mg/dL (0.6-1.0); UREA NITROGEN BLOOD 64 mg/dL (9-23)
[2025-01-17 09:19] LABS: T4 FREE 0.64 ng/dL (0.89-1.76)
[2025-01-17 09:40] LABS: PHOSPHORUS 0.7 mg/dL (2.5-4.9); TROPONIN I HIGH SENSITIVITY 263 ng/L (3.0-34)
[2025-01-17] MEDS: SODIUM BICARBONATE 8.4% 50MEQ/50ML SYR IV SCH (09:46)
[2025-01-17] MEDS: MAGNESIUM 2 G PREMIX 50 ML IV SCH ×2 (09:48→16:30)
[2025-01-17] MEDS: INSULIN REGULAR 100U/100ML PMX 100 ML IV SCH ×2 (10:07→16:20)
[2025-01-17 10:50] LABS: BAND% 16.0 % (1.0-6.0); LYMPHOCYTES % MANUAL 10.0 % (20.0-60.0); MONOCYTES % MANUAL 19.0 % (2.0-8.0); NEUTROPHILS % MANUAL 55.0 % (45.0-75.0)
[2025-01-17 10:51] LABS: PLATELET ESTIMATE SLIGHTLY INCREASED
[2025-01-17] MEDS: POTASSIUM PHOSPHATE 15 MMOL in DEXT 5% WATER 245 ML IV ONE (11:18)
[2025-01-17] MEDS: PHENYLEPHRINE 50MG/250ML PMX 250 ML IV PRN (11:19)
[2025-01-17] MEDS: ENOXAPARIN 30MG/0.3ML SYR SUBCUT SCH (11:20)
[2025-01-17] MEDS: LIDOCAINE HCL 1% 10 MG/ML 10ML VIAL ONE (12:38)
[2025-01-17] MEDS ORDERED: DEXTROSE 50% WATER 50ML SYRINGE IV PRN (13:15)
[2025-01-17] MEDS ORDERED: DEXT 5%/0.9% NACL 1,000 ML IV SCH (13:15)
[2025-01-17] MEDS ORDERED: MAGNESIUM 2 G PREMIX 50 ML IV PRN (13:15)
[2025-01-17] MEDS ORDERED: BLOOD SUGAR DIAGNOSTIC STRIP TEST PRN (13:15)
[2025-01-17] MEDS ORDERED: SODIUM PHOSPHATE 15 MMOL in SODIUM CHLORIDE 0.9% 245 ML IV PRN (13:15)
[2025-01-17] MEDS ORDERED: KCL 20MEQ/100ML PREMIX 100 ML IV PRN (13:15)
[2025-01-17] MEDS ORDERED: INSULIN REGULAR 100U/100ML PMX 99 ML IV SCH (13:30)
[2025-01-17] MEDS: BLOOD SUGAR DIAGNOSTIC STRIP TEST SCH (13:30)
[2025-01-17] MEDS ORDERED: SODIUM CHLORIDE 0.9% 1,000 ML IV SCH (13:30)
[2025-01-17 13:44] LABS: BG BASE EXCESS -10.1 mmol/L (-2.0-3.0); BG CARBOXYHEMOGLOBIN 1.1 % (0.5-1.5); BG DEOXYHEMOGLOBIN 10.0 % (0.0-5.0); BG FRACTION INSPIRED OXYGEN 21; BG HCO3 ACT 13.7 mmol/L (21.0-28.0); BG METHEMOGLOBIN 0.2 % (0.5-1.5); BG OXYGEN SATURATION 89.9 % (94.0-98.0); BG OXYHEMOGLOBIN 88.7 % (94.0-98.0); BG PCO2 24.7 mmHg (32.0-45.0); BG PH 7.363 (7.350-7.450); BG PO2 53.2 mmHg (83.0-108.0); BG SAMPLE SITE LEFT RADIAL; BG TOTAL HEMOGLOBIN 10.7 g/dL (12.0-16.0); BG VENT MODE ROOM AIR
[2025-01-17 14:03] LABS: INR 1.3
[2025-01-17 14:05] LABS: CREATININE 2.1 mg/dL (0.6-1.0); UREA NITROGEN BLOOD 54 mg/dL (9-23)
[2025-01-17] MEDS ORDERED: INSULIN REGULAR 100U/100ML PMX 100 ML IV SCH (14:17)
[2025-01-17 14:19] LABS: PHOSPHORUS 0.5 mg/dL (2.5-4.9)
[2025-01-17] MEDS: INSULIN GLARGINE 100 UNITS/ML SUBCUT SCH (15:25)
[2025-01-17] MEDS ORDERED: SODIUM BICARBONATE 150 MEQ in SODIUM CHLORIDE 0.45% 850 ML IV SCH (16:00)
[2025-01-17] MEDS: SODIUM BICARBONATE 50 MEQ in DEXTROSE 5% WATER 950 ML IV SCH (16:31)
[2025-01-17] MEDS: VANCOMYCIN 500MG PREMIX 100 ML IV SCH (17:25)
[2025-01-17] MEDS: PIPERACILLIN/TAZO 3.375G/50ML 50 ML IV SCH (17:25)
[2025-01-17 19:17] LABS: CREATININE 1.8 mg/dL (0.6-1.0); UREA NITROGEN BLOOD 46 mg/dL (9-23)
[2025-01-17 19:19] LABS: PHOSPHORUS 1.3 mg/dL (2.5-4.9)
[2025-01-17] MEDS: POTASSIUM PHOSPHATE 20 MMOL in DEXT 5% WATER 243.3333 ML IV SCH (20:41)
[2025-01-18] VITALS (94 sets, daily range): BP systolic 63–136; BP diastolic 36–112; PULSE 102–117; RESP 15–40; TEMP 36.7–37.8; O2SAT 93–100
[2025-01-18] MEDS: INSULIN GLARGINE 100 UNITS/ML SUBCUT SCH ×2 (02:38→21:12)
[2025-01-18] MEDS: SODIUM BICARBONATE 50 MEQ in DEXTROSE 5% WATER 950 ML IV SCH (02:39)
[2025-01-18] MEDS: POTASSIUM CHLORIDE 40 MEQ in SODIUM CHLORIDE 0.9% 230 ML IV PRN (04:53)
[2025-01-18 07:34] LABS: BASOPHILS % 0.3 % (0.0-2.0); EOSINOPHILS % 0.9 % (0.0-5.0); HEMATOCRIT. 29.1 % (36.0-48.0); HEMOGLOBIN. 9.6 g/dL (12.0-16.0); LYMPHOCYTES % 10.3 % (20.0-50.0); MEAN PLATELET VOLUME 9.8 fl (7.4-10.4); MONOCYTES % 6.8 % (2.0-8.0); NEUTROPHILS % 81.7 % (40.0-76.0); PLATELET 300 x1000/uL (130-400); RED BLOOD CELL COUNT 3.70 mill/uL (4.2-5.4); RED CELL DISTRIBUTION WIDTH 16.9 % (11.6-14.6)
[2025-01-18 07:41] LABS: CREATININE 1.7 mg/dL (0.6-1.0)
[2025-01-18 07:42] LABS: UREA NITROGEN BLOOD 41 mg/dL (9-23)
[2025-01-18 07:43] LABS: ASPARTATE AMINOTRANSFERASE 12 IU/L (<34)
[2025-01-18 07:44] LABS: BILIRUBIN DIRECT < 0.1 mg/dL (<=3.0); BILIRUBIN TOTAL 0.2 mg/dL (0.1-1.0); PHOSPHORUS 1.9 mg/dL (2.5-4.9); PROTEIN TOTAL 5.9 g/dL (6.0-8.3); VITAMIN B12 SERUM 428 pg/mL (211-911)
[2025-01-18 07:49] LABS: FOLIC ACID (FOLATE) SERUM 5.05 ng/mL (>5.38)
[2025-01-18 08:34] LABS: INR 1.1
[2025-01-18] MEDS ORDERED: INSULIN GLARGINE 100 UNITS/ML SUBCUT SCH (10:00)
[2025-01-18] MEDS: FOLIC ACID 1MG TABLET PO SCH (10:48)
[2025-01-18] MEDS: VANCOMYCIN 750MG PMX (XELLIA) 150 ML IV SCH (10:48)
[2025-01-18 10:56] LABS: BASOPHILS % 0.4 % (0.0-2.0); EOSINOPHILS % 0.9 % (0.0-5.0); HEMATOCRIT. 35.0 % (36.0-48.0); HEMOGLOBIN. 10.8 g/dL (12.0-16.0); LYMPHOCYTES % 11.3 % (20.0-50.0); MEAN PLATELET VOLUME 10.4 fl (7.4-10.4); MONOCYTES % 9.1 % (2.0-8.0); NEUTROPHILS % 78.3 % (40.0-76.0); PLATELET 299 x1000/uL (130-400); RED BLOOD CELL COUNT 4.34 mill/uL (4.2-5.4); RED CELL DISTRIBUTION WIDTH 17.2 % (11.6-14.6)
[2025-01-18] MEDS: INSULIN LISPRO 100 UNITS/ML SUBCUT SCH (12:00)
[2025-01-18] MEDS ORDERED: INSULIN LISPRO 100 UNITS/ML SUBCUT SCH (12:00)
[2025-01-18 12:06] LABS: PHOSPHORUS 1.9 mg/dL (2.5-4.9)
[2025-01-18] MEDS: BLOOD SUGAR DIAGNOSTIC STRIP TEST SCH (12:33)
[2025-01-18] MEDS: FERROUS SULFATE 325MG TABLET PO SCH (12:37)
[2025-01-18] MEDS: POTASSIUM PHOSPHATE 15 MMOL in DEXT 5% WATER 245 ML IV SCH (12:37)
[2025-01-18 13:05] LABS: BG BASE EXCESS -5.5 mmol/L (-2.0-3.0); BG CARBOXYHEMOGLOBIN 0.6 % (0.5-1.5); BG DEOXYHEMOGLOBIN 5.0 % (0.0-5.0); BG FLOW(L/min) 2.00 L/min; BG FRACTION INSPIRED OXYGEN 28; BG HCO3 ACT 17.7 mmol/L (21.0-28.0); BG METHEMOGLOBIN 0.2 % (0.5-1.5); BG OXYGEN SATURATION 95.0 % (94.0-98.0); BG OXYHEMOGLOBIN 94.2 % (94.0-98.0); BG PCO2 28.1 mmHg (32.0-45.0); BG PH 7.417 (7.350-7.450); BG PO2 71.1 mmHg (83.0-108.0); BG SAMPLE SITE LEFT BRACHIAL; BG TOTAL HEMOGLOBIN 12.5 g/dL (12.0-16.0); BG VENT MODE NASAL CANNULA
[2025-01-18] MEDS: ACETAMINOPHEN 325MG TABLET PO PRN (17:26)
[2025-01-18] MEDS: MIDODRINE HCL 5MG TABLET PO SCH (21:31)
[2025-01-19] VITALS (95 sets, daily range): BP systolic 63–160; BP diastolic 41–128; PULSE 92–114; RESP 15–33; TEMP 36.7–37.1; O2SAT 90–100
[2025-01-19] MEDS: SODIUM CHLORIDE 0.9% 500 ML IV ONE (11:32)
[2025-01-19 11:40] LABS: BASOPHILS % 0.3 % (0.0-2.0); EOSINOPHILS % 1.5 % (0.0-5.0); HEMATOCRIT. 32.3 % (36.0-48.0); HEMOGLOBIN. 10.0 g/dL (12.0-16.0); LYMPHOCYTES % 12.0 % (20.0-50.0); MEAN PLATELET VOLUME 10.1 fl (7.4-10.4); MONOCYTES % 8.6 % (2.0-8.0); NEUTROPHILS % 77.6 % (40.0-76.0); PLATELET 237 x1000/uL (130-400); RED BLOOD CELL COUNT 4.02 mill/uL (4.2-5.4); RED CELL DISTRIBUTION WIDTH 16.8 % (11.6-14.6)
[2025-01-19 12:02] LABS: CREATININE 1.6 mg/dL (0.6-1.0); UREA NITROGEN BLOOD 32 mg/dL (9-23)
[2025-01-19 12:04] LABS: PHOSPHORUS 2.0 mg/dL (2.5-4.9)
[2025-01-19] MEDS: ACETAMINOPHEN 325MG TABLET PO PRN (13:18)
[2025-01-19] MEDS: MIDODRINE HCL 5MG TABLET PO SCH (13:19)
[2025-01-19 13:37] LABS: BG BASE EXCESS -3.7 mmol/L (-2.0-3.0); BG CARBOXYHEMOGLOBIN 0.3 % (0.5-1.5); BG DEOXYHEMOGLOBIN 6.7 % (0.0-5.0); BG FRACTION INSPIRED OXYGEN 28; BG HCO3 ACT 19.9 mmol/L (21.0-28.0); BG METHEMOGLOBIN 0.0 % (0.5-1.5); BG OXYGEN SATURATION 93.3 % (94.0-98.0); BG OXYHEMOGLOBIN 93.0 % (94.0-98.0); BG PCO2 31.0 mmHg (32.0-45.0); BG PH 7.426 (7.350-7.450); BG PO2 66.8 mmHg (83.0-108.0); BG SAMPLE SITE RIGHT RADIAL; BG TOTAL HEMOGLOBIN 9.6 g/dL (12.0-16.0); BG VENT MODE NASAL CANNULA
[2025-01-19] MEDS: MAGNESIUM 2 G PREMIX 50 ML IV NR (17:56)
[2025-01-19] MEDS: SODIUM PHOSPHATE 20 MMOL in DEXT 5% WATER 243.3333 ML IV NR (18:59)
[2025-01-20] VITALS (17 sets, daily range): BP systolic 90–123; BP diastolic 50–71; PULSE 100–107; RESP 12–28; TEMP 35.9–36.9; O2SAT 92–99
[2025-01-20 10:21] LABS: BASOPHILS % 0.3 % (0.0-2.0); EOSINOPHILS % 1.6 % (0.0-5.0); HEMATOCRIT. 28.5 % (36.0-48.0); HEMOGLOBIN. 8.9 g/dL (12.0-16.0); LYMPHOCYTES % 12.6 % (20.0-50.0); MEAN PLATELET VOLUME 9.8 fl (7.4-10.4); MONOCYTES % 10.6 % (2.0-8.0); NEUTROPHILS % 74.9 % (40.0-76.0); PLATELET 229 x1000/uL (130-400); RED BLOOD CELL COUNT 3.67 mill/uL (4.2-5.4); RED CELL DISTRIBUTION WIDTH 16.7 % (11.6-14.6)
[2025-01-20 10:36] LABS: CREATININE 1.5 mg/dL (0.6-1.0); UREA NITROGEN BLOOD 30.0 mg/dL (9-23)
[2025-01-20] MEDS: CYANOCOBALAMIN 1000MCG/ML VIAL IM SCH (13:59)
[2025-01-21] VITALS: BP 121/60; PULSE 96; RESP 18; TEMP 36.3; O2SAT 87
[2025-01-21 04:00] VITALS: BP 120/52; PULSE 94; RESP 18; RESP 19; TEMP 36.2; TEMP 36.4; O2SAT 100
[2025-01-21 08:00] VITALS: BP 153/79; PULSE 95; RESP 14; TEMP 36.7; O2SAT 96
[2025-01-21] MEDS ORDERED: GUAIFENESIN/DM 600MG/30MG ER TAB 12HR PO PRN (11:00)
[2025-01-21 12:00] VITALS: BP 101/62; PULSE 97; RESP 18; TEMP 36.6; O2SAT 95
[2025-01-21] MEDS: TAMSULOSIN HCL 0.4MG SR CAPSULE PO SCH (13:30)
[2025-01-21 13:45] LABS: HEMATOCRIT. 25.3 % (36.0-48.0); HEMOGLOBIN. 7.9 g/dL (12.0-16.0); MEAN PLATELET VOLUME 9.5 fl (7.4-10.4); PLATELET 212 x1000/uL (130-400); RED BLOOD CELL COUNT 3.22 mill/uL (4.2-5.4); RED CELL DISTRIBUTION WIDTH 16.5 % (11.6-14.6)
[2025-01-21 14:06] LABS: BAND% 6.0 % (1.0-6.0); EOSINOPHILS % MANUAL 2.0 % (0.0-5.0); LYMPHOCYTES % MANUAL 26.0 % (20.0-60.0); MONOCYTES % MANUAL 23.0 % (2.0-8.0); NEUTROPHILS % MANUAL 43.0 % (45.0-75.0); PLATELET ESTIMATE NORMAL
[2025-01-21 14:07] LABS: CREATININE 1.5 mg/dL (0.6-1.0); UREA NITROGEN BLOOD 30.0 mg/dL (9-23)
[2025-01-21 16:00] VITALS: BP 133/65; PULSE 100; RESP 18; TEMP 36.2; O2SAT 93
[2025-01-21 20:00] VITALS: BP 117/63; PULSE 105; RESP 19; TEMP 36.8; O2SAT 93
[2025-01-22] VITALS: BP 114/57; PULSE 103; RESP 19; TEMP 36.8; O2SAT 91
[2025-01-22 04:00] VITALS: BP 116/61; PULSE 101; RESP 19; TEMP 36.6; O2SAT 92
[2025-01-22 08:00] VITALS: BP 126/54; PULSE 102; RESP 18; TEMP 36.2; O2SAT 96
[2025-01-22] MEDS: DOCUSATE SODIUM 100MG CAPSULE PO PRN (10:21)
[2025-01-22 12:00] VITALS: BP 125/50; PULSE 98; RESP 18; TEMP 36.3; O2SAT 95
[2025-01-22 13:43] LABS: HEMATOCRIT. 25.0 % (36.0-48.0); HEMOGLOBIN. 7.8 g/dL (12.0-16.0); MEAN PLATELET VOLUME 9.7 fl (7.4-10.4); PLATELET 225 x1000/uL (130-400); RED BLOOD CELL COUNT 3.16 mill/uL (4.2-5.4); RED CELL DISTRIBUTION WIDTH 16.4 % (11.6-14.6)
[2025-01-22 14:12] LABS: CREATININE 1.5 mg/dL (0.6-1.0); UREA NITROGEN BLOOD 29.0 mg/dL (9-23)
[2025-01-22 16:00] VITALS: BP 111/52; PULSE 100; RESP 18; TEMP 36.2; O2SAT 95
[2025-01-22 18:11] LABS: BAND% 7.0 % (1.0-6.0); LYMPHOCYTES % MANUAL 19.0 % (20.0-60.0); MONOCYTES % MANUAL 21.0 % (2.0-8.0); NEUTROPHILS % MANUAL 53.0 % (45.0-75.0); PLATELET ESTIMATE NORMAL
[2025-01-22 20:00] VITALS: BP 103/60; PULSE 105; RESP 18; TEMP 36.8; O2SAT 95
[2025-01-23] VITALS: BP 90/44; PULSE 105; RESP 18; TEMP 37.5; O2SAT 91
[2025-01-23 04:00] VITALS: BP 107/57; PULSE 100; RESP 18; TEMP 37.5; O2SAT 96
[2025-01-23 07:32] LABS: CREATININE 1.5 mg/dL (0.6-1.0)
[2025-01-23 07:33] LABS: UREA NITROGEN BLOOD 22.0 mg/dL (9-23)
[2025-01-23 08:00] VITALS: BP 101/47; PULSE 64; RESP 16; TEMP 36.4; O2SAT 95
[2025-01-23 08:05] LABS: HEMATOCRIT. 23.9 % (36.0-48.0); HEMOGLOBIN. 7.3 g/dL (12.0-16.0); MEAN PLATELET VOLUME 9.8 fl (7.4-10.4); PLATELET 230 x1000/uL (130-400); RED BLOOD CELL COUNT 2.95 mill/uL (4.2-5.4); RED CELL DISTRIBUTION WIDTH 16.5 % (11.6-14.6)
[2025-01-23 12:00] VITALS: BP 97/54; PULSE 61; RESP 16; TEMP 35.7; O2SAT 96
[2025-01-23 16:00] VITALS: BP 111/64; PULSE 79; RESP 16; TEMP 36; O2SAT 95
[2025-01-23 16:47] LABS: EOSINOPHILS % MANUAL 1.0 % (0.0-5.0); LYMPHOCYTES % MANUAL 34.0 % (20.0-60.0); MONOCYTES % MANUAL 9.0 % (2.0-8.0); NEUTROPHILS % MANUAL 56.0 % (45.0-75.0); PLATELET ESTIMATE NORMAL
[2025-01-23 20:00] VITALS: BP 87/43; PULSE 105; RESP 18; TEMP 36.6; O2SAT 90
[2025-01-24] VITALS: BP 110/62; PULSE 105; RESP 20; TEMP 36.5; O2SAT 91
[2025-01-24 04:00] VITALS: BP 118/68; PULSE 101; RESP 19; TEMP 36.4; O2SAT 93
[2025-01-24 08:00] VITALS: BP 103/62; PULSE 76; RESP 16; TEMP 36.1; O2SAT 95
[2025-01-24 08:01] LABS: CREATININE 1.5 mg/dL (0.6-1.0); UREA NITROGEN BLOOD 26.0 mg/dL (9-23)
[2025-01-24 08:21] LABS: BASOPHILS % 0.5 % (0.0-2.0); EOSINOPHILS % 1.2 % (0.0-5.0); HEMATOCRIT. 22.5 % (36.0-48.0); HEMOGLOBIN. 7.1 g/dL (12.0-16.0); LYMPHOCYTES % 22.8 % (20.0-50.0); MEAN PLATELET VOLUME 9.5 fl (7.4-10.4); MONOCYTES % 12.4 % (2.0-8.0); NEUTROPHILS % 63.1 % (40.0-76.0); PLATELET 294 x1000/uL (130-400); RED BLOOD CELL COUNT 2.85 mill/uL (4.2-5.4); RED CELL DISTRIBUTION WIDTH 16.2 % (11.6-14.6)
[2025-01-24 12:00] VITALS: BP 141/79; PULSE 91; RESP 16; TEMP 36.2; O2SAT 95
[2025-01-24 16:00] VITALS: BP 130/77; PULSE 98; RESP 16; TEMP 36.1; O2SAT 96
[2025-01-24 20:00] VITALS: BP 130/87; PULSE 105; RESP 20; TEMP 36.3; O2SAT 96
[2025-01-25] VITALS (7 sets, daily range): BP systolic 96–146; BP diastolic 53–96; PULSE 78–102; RESP 16–20; TEMP 36.1–36.5; O2SAT 96–99
[2025-01-25] MEDS: LACTOBACILLUS RHAMNOSUS GG CAP PO SCH (08:46)
[2025-01-25] MEDS: IPRATROPIUM/ALBUTEROL 0.5-3(2.5)MG/3ML NEB HHN SCH (12:00)
[2025-01-25 23:24] LABS: INFLUENZA TYPE A Presumptive Negative (Pres. Neg.)
[2025-01-25 23:25] LABS: INFLUENZA TYPE B Presumptive Negative (Pres. Neg.)
[2025-01-25 23:26] LABS: RESPIRATORY SYNCYTIAL VIRUS Not Detected (Not Detectd)
[2025-01-26] VITALS (7 sets, daily range): BP systolic 117–154; BP diastolic 65–88; PULSE 91–103; RESP 18–20; TEMP 35.9–37.4; O2SAT 97–100
[2025-01-26 14:40] LABS: CREATININE 1.3 mg/dL (0.6-1.0); UREA NITROGEN BLOOD 22 mg/dL (9-23)
[2025-01-26 14:41] LABS: BASOPHILS % 0.6 % (0.0-2.0); EOSINOPHILS % 0.6 % (0.0-5.0); HEMATOCRIT. 24.2 % (36.0-48.0); HEMOGLOBIN. 7.5 g/dL (12.0-16.0); LYMPHOCYTES % 20.6 % (20.0-50.0); MEAN PLATELET VOLUME 9.0 fl (7.4-10.4); MONOCYTES % 8.7 % (2.0-8.0); NEUTROPHILS % 69.5 % (40.0-76.0); PLATELET 486 x1000/uL (130-400); RED BLOOD CELL COUNT 3.04 mill/uL (4.2-5.4); RED CELL DISTRIBUTION WIDTH 15.6 % (11.6-14.6)
[2025-01-26 14:42] LABS: PHOSPHORUS 3.2 mg/dL (2.5-4.9)
[2025-01-26] MEDS ORDERED: DEXTROSE 50% WATER 50ML SYRINGE IV PRN (18:30)
[2025-01-26] MEDS: DEXTROSE 50% WATER 50ML SYRINGE IV ONE (18:54)
[2025-01-26] MEDS: INSULIN LISPRO 100 UNITS/ML SUBCUT SCH (22:13)
[2025-01-27] VITALS: BP 108/68; PULSE 107; RESP 18; TEMP 36.6; O2SAT 100
[2025-01-27] MEDS: INSULIN LISPRO 100 UNITS/ML SUBCUT SCH ×2 (00:43→13:51)
[2025-01-27 04:00] VITALS: BP 143/71; PULSE 119; RESP 18; TEMP 37.4; O2SAT 100
[2025-01-27 08:00] VITALS: BP 118/73; PULSE 100; RESP 17; TEMP 36.5; O2SAT 100
[2025-01-27 08:24] VITALS: PULSE 115; RESP 16
[2025-01-27 08:50] LABS: BASOPHILS % 0.3 % (0.0-2.0); EOSINOPHILS % 0.3 % (0.0-5.0); HEMATOCRIT. 24.2 % (36.0-48.0); HEMOGLOBIN. 7.6 g/dL (12.0-16.0); LYMPHOCYTES % 19.3 % (20.0-50.0); MEAN PLATELET VOLUME 8.7 fl (7.4-10.4); MONOCYTES % 6.9 % (2.0-8.0); NEUTROPHILS % 73.2 % (40.0-76.0); PLATELET 583 x1000/uL (130-400); RED BLOOD CELL COUNT 3.07 mill/uL (4.2-5.4); RED CELL DISTRIBUTION WIDTH 16.1 % (11.6-14.6)
[2025-01-27 09:02] LABS: INR 1.1
[2025-01-27 09:09] LABS: UREA NITROGEN BLOOD 19 mg/dL (9-23)
[2025-01-27 09:10] LABS: CREATININE 1.3 mg/dL (0.6-1.0)
[2025-01-27 09:12] LABS: ASPARTATE AMINOTRANSFERASE 13 IU/L (<34); BILIRUBIN DIRECT < 0.1 mg/dL (<=3.0); PHOSPHORUS 2.9 mg/dL (2.5-4.9)
[2025-01-27 09:13] LABS: BILIRUBIN TOTAL < 0.2 mg/dL (0.1-1.0); PROTEIN TOTAL 6.7 g/dL (6.0-8.3)
[2025-01-27 12:00] VITALS: BP 114/61; PULSE 102; RESP 17; TEMP 36.6; O2SAT 98
[2025-01-27 16:00] VITALS: BP 90/50; PULSE 105; RESP 18; TEMP 36.7; O2SAT 99
[2025-01-27] MEDS: DEXT 5%/0.45% NACL 1000ML 1,000 ML IV SCH (21:10)
[2025-01-28] VITALS (8 sets, daily range): BP systolic 11–135; BP diastolic 46–82; PULSE 80–108; RESP 16–21; TEMP 36–37.1; O2SAT 94–100
[2025-01-28] MEDS ORDERED: FERR-63 PO (14:29)
[2025-01-28] MEDS ORDERED: MIDO5TAB4 PO (14:29)
[2025-01-28] MEDS ORDERED: FOLI-43 PO (14:29)
[2025-01-28] MEDS ORDERED: TAMS-54 PO (14:29)
[2025-02-01] MEDS ORDERED: TAMS-54 MT (12:48)
[2025-02-01] MEDS ORDERED: GABA300C MT (12:48)
[2025-02-01] MEDS ORDERED: MIDO5TAB4 MT (12:48)
[2025-02-01] MEDS ORDERED: FLUO20CA33 MT (12:48)
[2025-02-01] MEDS ORDERED: FOLI-43 MT (12:48)
[2025-02-01] MEDS ORDERED: AMOX1TAB16 MT (12:48)
[2025-02-01] MEDS ORDERED: DOCU-138 MT (12:48)
[2025-02-01] MEDS ORDERED: FERR-71 MT (12:48)
== END 2025-01-28 21:37 | disposition home health service (06) | DRG 720 ==
LOC: ER 08:41 → MICUSO 11:17 → EDBEDREQSVC 11:30 → EDBEDREQTM 11:30 → EDBEDREQ 11:30 → MICUNO 19:47 → 6WST 01-20 03:43 → 7EST 01-26 11:55
PROVIDERS: ADMIT Internal Medicine; ATTEND Internal Medicine
PROC: 05H533Z Insertion of Infusion Device into Right Subclavian Vein, Percutaneous Approach (ICD-10-PCS; principal; 2025-01-17)
PROC: B546ZZA Ultrasonography of Right Subclavian Vein, Guidance (ICD-10-PCS; 2025-01-17)
DX: A41.9 Sepsis, unspecified organism (principal); N17.0 Acute kidney failure with tubular necrosis; J96.01 Acute respiratory failure with hypoxia; E11.10 Type 2 diabetes mellitus with ketoacidosis without coma; G93.41 Metabolic encephalopathy; R65.21 Severe sepsis with septic shock; Z20.822 Contact with and (suspected) exposure to COVID-19; E83.39 Other disorders of phosphorus metabolism; E83.41 Hypermagnesemia; E11.22 Type 2 diabetes mellitus with diabetic chronic kidney disease; Z79.4 Long term (current) use of insulin; E87.5 Hyperkalemia; D72.821 Monocytosis (symptomatic); E86.1 Hypovolemia; N18.30 Chronic kidney disease, stage 3 unspecified; I12.9 Hypertensive chronic kidney disease with stage 1 through stage 4 chronic kidney disease, or unspecified chronic kidney disease; E87.0 Hyperosmolality and hypernatremia; G35 Multiple sclerosis; J84.9 Interstitial pulmonary disease, unspecified; E83.42 Hypomagnesemia; D50.9 Iron deficiency anemia, unspecified; E87.6 Hypokalemia; S40.822A Blister (nonthermal) of left upper arm, initial encounter; X58.XXXA Exposure to other specified factors, initial encounter; E86.0 Dehydration; I13.10 Hypertensive heart and chronic kidney disease without heart failure, with stage 1 through stage 4 chronic kidney disease, or unspecified chronic kidney disease; N13.2 Hydronephrosis with renal and ureteral calculous obstruction; Z87.440 Personal history of urinary (tract) infections; Z91.148 Patient's other noncompliance with medication regimen for other reason; Y93.89 Activity, other specified; Y92.89 Other specified places as the place of occurrence of the external cause; Y99.8 Other external cause status
CPT/HCPCS: 36415; 36573; 36600; 71045; 71250; 74176; 76700; 80048; 80051; 80076; 80202; 80305; 81003; 82010; 82270; 82375; 82550; 82553; 82607; 82728; 82746; 82805; 82962; 83036; 83540; 83550; 83605; 83735; 83880; 83930; 84100; 84145; 84439; 84443; 84480; 84484; 85025; 85044; 87070; 87106; 87420; 87426; 87804; 92610; 93005; 93970; 94070; 94640; 97162; 97530; 99291; A4606; A6261; C1725; J1308; J1650; J1815; J2003; J2371; J2543; J3373; J3420; J3475; J3480; J3490; J7030; J7042; J7050; J7060; J7070